=== PATIENT | male | born 1970 | race Caucasian/White ===

== ENCOUNTER 2016-09-11 14:00 | Emergency (ER) | payer BC ==
[~2016-09-11 14:00] MED LIST: BACTRIM DS TABL1 TA1 PO; CIPRO PO; FLOMAX0.4 M1 PO; PERCOCET5/325 PO; PHENERGAN25 MG PO; PYRIDIUM PO; TYLOX1 CAP 5/50 DOB; ZOFRAN PO
== END 2016-09-11 15:03 | disposition home or self-care (01) ==
LOC: SED 14:00
DX: T65.91XA Toxic effect of unspecified substance, accidental (unintentional), initial encounter (principal); F17.210 Nicotine dependence, cigarettes, uncomplicated
CPT/HCPCS: 99282